=== PATIENT | female | born 1930 | race Caucasian/White ===

== ENCOUNTER 2021-06-18 14:44 | Emergency (ER) | payer MEDICARE, OTHER ==
[2021-06-18 15:13] LABS: Absolute Neutrophil Ct (ANC) 5.54 (1.4-6.9); BASOPHIL % 0.5 % (0.0-0.4); Basophil (Absolute #) 0.04 (0-0.4); Eosinophil % 0.4 % (0.00-5.0); Eosinophil (Absolute #) 0.03 (0-0.5); Hemoglobin 11.9 gm/dl (12.0-16.0); Lymphocyte (Absolute #) 0.97 (1.0-4.6); Lymphocytes % 13.1 % (24.0-44.0); Mean Cell Volume 87.2 fl (78-100); Mean Corpuscular Hemoglobin 30.5 pg (26-32); Mean Platelet Volume 9.6 fl (7.5-11.0); Monocyte (Absolute #) 0.83 (0.0-1.3); Monocytes % 11.2 % (0.0-12.0); Neutrophil % 74.8 % (36.0-66.0); Platelet Count 202 K/mm3 (150-450); Red Cell Distribution Width 11.9 % (11.5-14.0); White Blood Count 7.4 K/mm3 (4.0-10.5)
[2021-06-18 15:17] LABS: Appearance CLEAR (CLEAR); Bilirubin NEGATIVE (NEGATIVE); Blood NEGATIVE Ery/ul (0-5); Glucose 50 mg/dL (NEGATIVE); Ketones SMALL (NEGATIVE); Leukocyte Esterase NEGATIVE (NEGATIVE); Mucus SLIGHT /HPF (NEGATIVE); Nitrite NEGATIVE (NEGATIVE); Protein,Urine Dip 30 (Negative); RBC 0-2 /HPF (0-2); Specific Gravity 1.019 (1.005-1.025); Urobilinogen NEGATIVE mg/dL (0-1)
--- NOTE | 2021-06-18 15:20 | XRAY ---
Indication: Short of breath. Comparison: July 11, 2014. Portable chest remains clear. Heart not enlarged. Bony thorax again demonstrates osteopenia, degenerative changes, old right rib fractures, moderate dextrorotoscoliosis, and new finding for old left proximal humerus fracture with intact orthopedic hardware. Impression: Nonacute chest with chronic features.
[2021-06-18 15:37] LABS: INR 1.35 (0.8-3.0); PROTIME 15.9 SECONDS (9.4-12.5)
[2021-06-18 15:39] LABS: PTT 28.1 SECONDS (25.1-36.5)
[2021-06-18 15:41] LABS: ALBUMIN 4.1 g/dL (3.5-5.0); ALKALINE PHOSPHATASE 60 U/L (38-126); ANION GAP 14.7 MEQ/L (5-15); BLOOD UREA NITROGEN 23 mg/dL (7-17); CHLORIDE 89 mmol/L (98-107); Calcium 9.3 mg/dL (8.4-10.2); Carbon Dioxide 25 mmol/L (22-30); Creatinine 1 0.54 mg/dL (0.52-1.04); EST GLOMERULAR FILTRATION RATE > 60.0 ML/MIN; Glucose 171 mg/dL (74-106); Potassium 3.7 mmol/L (3.5-5.1); SGOT/AST 30 U/L (14-36); SGPT/ALT 19 U/L (0-35); SODIUM 125 mmol/L (137-145); Total Protein 7.4 g/dL (6.3-8.2)
--- NOTE | 2021-06-18 15:54 | ERPHSYRPT ---
- History of Present Illness Source: patient Exam Limitations: other (Very poor historian) Patient Subjective Stated Complaint: PT states "I am so tired that I cannot function well. It hurts when I breathe and my sugar has been all wonky." Triage Nursing Assessment: PT presented alert and oriented X 3, skin pwd. Pt ambulates with a slow shuffling gait with assist of 1. PT in no apparant respiratory distress. pt resting comfortably on the bed, FSBS 172 Physician History: 89 yo wf who is a very poor historian presents w lethargy and generalized pain. Pt states that she has had some abdominal pain and L lateral thoracic pain that seems to get worse w lying back. She denies trauma/fall. Pt has mild dyspnea wo chest pain/N/V/cough/fever/dysuria/hematuria. She has scoliosis and takes Ultram for pain. Timing/Duration: other (5 days) Modifying Factors: Improves With: movement Associated Symptoms: nausea, abdominal pain, No vomiting Allergies/Adverse Reactions: aspirin Adverse Reaction (Mild, Verified 12/19/13 09:52) pt states "i was told it interferes with my blood platelets. Takes ASA 81mg,states can't take large doses. Home Medications: Metoprolol Succinate 25 mg Xl* [Toprol-Xl 25MG Tablets] 25 mg PO DAILY 02/14/13 [History] Aspirin 81 mg PO DAILY 12/19/13 [History] Buspirone HCl 5 mg PO HS 03/27/20 [History] Esomeprazole Magnesium [Nexium] 20 mg PO DAILY 03/27/20 [History] Insulin Aspart [Novolog] 3 unit SQ TIDWMEALS 03/27/20 [History] Insulin Glargine [Lantus Insulin] 10 unit SQ DAILY 03/27/20 [History] Loratadine 10 mg [Claritin 10 mg] 10 mg PO DAILY 03/27/20 [History] Tramadol HCl 50 mg [Ultram 50 mg] 50 mg PO HS 03/27/20 [History] Hx Tetanus, Diphtheria Vaccination/Date Given: No Hx Influenza Vaccination/Date Given: Yes (fall 2012) Hx Pneumococcal Vaccination/Date Given: No Immunizations Up to Date: Yes Travel Risk - International Travel Have you traveled outside of the country in past 3 weeks: No - Coronavirus Screening Are you exhibiting any of the following symptoms?: No Close contact with a COVID-19 positive Pt in past 14-21 Days: No - Vaccine Status Have you recieved a Covid-19 vaccination: Yes Power Electronics Engineer: [employer] - Vaccination Dates Date of 2cond Vaccination (if applicable): 01/2021 - Review of Systems Constitutional: No Symptoms, Lethargy Eyes: No Symptoms Ears, Nose, & Throat: No Symptoms Respiratory: No Symptoms, Dyspnea Cardiac: No Symptoms, No Chest Pain, No Edema, No Palpitations, No Syncope, No Orthopnea, No PND Abdominal/Gastrointestinal: Abdominal Pain, Constipation, No No Symptoms Genitourinary Symptoms: No Symptoms Musculoskeletal: No Symptoms, Arthralgias, Back Pain Skin: No Symptoms Neurological: No Symptoms Psychological: No Symptoms Endocrine: No Symptoms Hematologic/Lymphatic: No Symptoms Immunological/Allergic: No Symptoms - Past Medical History Pertinent Past Medical History: Yes Neurological History: No Pertinent History ENT History: Cataracts Cardiac History: Coronary Artery Disease, High Cholesterol, Hypertension Respiratory History: No Pertinent History Endocrine Medical History: Diabetes Type II Musculoskeletal History: Osteoarthritis, Osteoporosis, Rheumatoid Arthritis, Other GI Medical History: GERD, Irritable Bowel History: Other Psycho-Social History: No Pertinent History Female Reproductive Disorders: No Pertinent History Other Medical History: scoliosis - Past Surgical History Past Surgical History: Yes Neuro Surgical History: No Pertinent History Cardiac: Cardiac Catheterization Respiratory: No Pertinent History Gastrointestinal: Cholecystectomy, Other Genitourinary: No Pertinent History Musculoskeletal: Joint Replacement Female Surgical History: Hysterectomy Other Surgical History: colonoscopy,jessenia IOL with lens implants, right knee replacement - Social History Smoking Status: Never smoker Exposure to second hand smoke: Yes Drug Use: none Patient Lives Alone: No Significant Family History: no pertinent family hx - Nursing Vital Signs Nursing Vital Signs: Initial Vital Signs Temperature 98.9 F 06/18/21 14:44 Pulse Rate 76 06/18/21 14:44 Respiratory Rate 22 06/18/21 14:44 Blood Pressure 152/87 06/18/21 14:44 O2 Sat by Pulse Oximetry 97 06/18/21 14:44 Pain Scale Pain Intensity 8 Hypertensive - Physical Exam General Appearance: no apparent distress Eye Exam: PERRL/EOMI, eyes nml inspection Ears, Nose, Throat Exam: normal ENT inspection, TMs normal, pharynx normal, moist mucous membranes Neck Exam: normal inspection, non-tender, supple, full range of motion, No meningismus, No mass, No Brudzinski, No Kernig's Respiratory Exam: normal breath sounds, chest tenderness (Mild, R lateral- inferior thoracic pain), lungs clear, airway intact, No respiratory distress Cardiovascular Exam: regular rate/rhythm, murmur (2/6 ISHAN) Gastrointestinal/Abdomen Exam: soft, normal bowel sounds, No tenderness Extremity Exam: normal inspection, normal range of motion, pelvis stable, other (Brace RLE) Neurologic Exam: alert, oriented x 3, cooperative, patient portal representative II-XII nml as tested, normal mood/affect, sensation nml, No motor deficits, No sensory deficit Skin Exam: normal color, warm, dry, No rash Lymphatic Exam: No adenopathy SpO2 Interpretation: normal SpO2: 97 O2 Delivery: Room Air - Course Nursing assessment & vital signs reviewed: Yes EKG Interpreted by Me: RATE (NSR/R76/Old inferior WI/Old anterior WI/Prolonged QTc) - Radiology Exams Chest X-ray Interpretation: Discussed w/ radiologist (Nothing acute per Rad) - CT Exams Chest CT Interpretation: Discussed w/radiologist (Fecal stasis/Distended bladder/osteopenia/scoliosis) Abdomen/Pelvis CT Interpretation: Discussed w/radiologist (Nothing acute) Ordered Tests: Active Orders 24 hr Category Date Time Status EKG-ER Only STAT Care 06/18/21 14:53 Completed ABDOMEN AND PELVIS W/0 CONTRAS [CT] Stat Exams 06/18/21 17:42 Taken CHEST 1 VIEW (PORTABLE) Stat Exams 06/18/21 14:53 Completed CHEST WITHOUT CONTRAST [CT] Stat Exams 06/18/21 17:41 Taken CBC W DIFF Stat Lab 06/18/21 15:00 Completed CMP Stat Lab 06/18/21 15:00 Completed PROTIME WITH INR Stat Lab 06/18/21 15:00 Completed PTT Stat Lab 06/18/21 15:00 Completed TROPONIN Q3H Lab 06/18/21 15:00 Completed TROPONIN Q3H Lab 06/18/21 17:59 Completed UA W/RFX UR CULTURE Stat Lab 06/18/21 15:04 Completed Medication Summary Discontinued Medications Generic Name Dose Route Start Last Admin Trade Name Freq PRN Reason Stop Dose Admin Ketorolac Tromethamine 15 mg 06/18/21 17:41 06/18/21 17:51 Toradol 30 Mg Injection IV 06/18/21 17:42 15 mg STAT ONE Administration Ketorolac Tromethamine Confirm 06/18/21 17:49 Toradol 30 Mg Injection Administered 06/18/21 17:50 Dose 30 mg .ROUTE .STK-MED ONE Ondansetron HCl 4 mg 06/18/21 19:33 06/18/21 19:37 Zofran Odt 4 Mg PO 06/18/21 19:34 4 mg STAT ONE Administration Ondansetron HCl Confirm 06/18/21 19:34 Zofran Odt 4 Mg Administered 06/18/21 19:35 Dose 4 mg .ROUTE .STK-MED ONE Lab/Rad Data: Laboratory Result Diagrams 06/18/21 15:00 06/18/21 15:00 Laboratory Results 06/18/21 06/18/21 06/18/21 Range/Units 17:59 15:04 15:00 WBC (4.0-10.5) K/mm3 RBC (4.1-5.4) M/mm3 Hgb (12.0-16.0) gm/dl Hct (35-47) % MCV (78-100) fl MCH (26-32) pg MCHC (32-36) g/dl RDW (11.5-14.0) % Plt Count (150-450) K/mm3 MPV (7.5-11.0) fl Gran % (36.0-66.0) % Eos # (Auto) (0-0.5) Absolute Lymphs (auto) (1.0-4.6) Absolute Monos (auto) (0.0-1.3) Lymphocytes % (24.0-44.0) % Monocytes % (0.0-12.0) % Eosinophils % (0.00-5.0) % Basophils % (0.0-0.4) % Absolute Granulocytes (1.4-6.9) Basophils # (0-0.4) PT (9.4-12.5) SECONDS INR (0.8-3.0) APTT (25.1-36.5) SECONDS Sodium (137-145) mmol/L Potassium (3.5-5.1) mmol/L Chloride (98-107) mmol/L Carbon Dioxide (22-30) mmol/L Anion Gap (5-15) MEQ/L BUN (7-17) mg/dL Creatinine (0.52-1.04) mg/dL Estimated GFR ML/MIN Glucose (74-106) mg/dL Calcium (8.4-10.2) mg/dL Total Bilirubin (0.2-1.3) mg/dL AST (14-36) U/L ALT (0-35) U/L Alkaline Phosphatase (38-126) U/L Troponin I < 0.012 < 0.012 (0.000-0.034) ng/mL Serum Total Protein (6.3-8.2) g/dL Albumin (3.5-5.0) g/dL Urine Color YELLOW (YELLOW) Urine Appearance CLEAR (CLEAR) Urine pH 6.0 (5-6) Ur Specific [place] 1.019 (1.005-1.025) Urine Protein 30 (Negative) Urine Ketones SMALL (NEGATIVE) Urine Blood NEGATIVE (0-5) [place]/ul Urine Nitrite NEGATIVE (NEGATIVE) Urine Bilirubin NEGATIVE (NEGATIVE) Urine Urobilinogen NEGATIVE (0-1) mg/dL Ur Leukocyte Esterase NEGATIVE (NEGATIVE) Urine WBC (Auto) NONE (0-5) /HPF Urine RBC (Auto) 0-2 (0-2) /HPF U Epithel Cells (Auto) NONE (FEW) /HPF Urine Bacteria (Auto) NONE (NEGATIVE) /HPF Urine Mucus (Auto) SLIGHT (NEGATIVE) /HPF Urine Culture Reflexed NO (NO) Urine Glucose 50 (NEGATIVE) mg/dL 06/18/21 06/18/21 06/18/21 Range/Units 15:00 15:00 15:00 WBC 7.4 (4.0-10.5) K/mm3 RBC 3.90 L (4.1-5.4) M/mm3 Hgb 11.9 L (12.0-16.0) gm/dl Hct 34.0 L (35-47) % MCV 87.2 (78-100) fl MCH 30.5 (26-32) pg MCHC 35.0 (32-36) g/dl RDW 11.9 (11.5-14.0) % Plt Count 202 (150-450) K/mm3 MPV 9.6 (7.5-11.0) fl Gran % 74.8 H (36.0-66.0) % Eos # (Auto) 0.03 (0-0.5) Absolute Lymphs (auto) 0.97 L (1.0-4.6) Absolute Monos (auto) 0.83 (0.0-1.3) Lymphocytes % 13.1 L (24.0-44.0) % Monocytes % 11.2 (0.0-12.0) % Eosinophils % 0.4 (0.00-5.0) % Basophils % 0.5 (0.0-0.4) % Absolute Granulocytes 5.54 (1.4-6.9) Basophils # 0.04 (0-0.4) PT 15.9 H (9.4-12.5) SECONDS INR 1.35 (0.8-3.0) APTT 28.1 (25.1-36.5) SECONDS Sodium 125 L (137-145) mmol/L Potassium 3.7 (3.5-5.1) mmol/L Chloride 89 L (98-107) mmol/L Carbon Dioxide 25 (22-30) mmol/L Anion Gap 14.7 (5-15) MEQ/L BUN 23 H (7-17) mg/dL Creatinine 0.54 (0.52-1.04) mg/dL Estimated GFR > 60.0 ML/MIN Glucose 171 H (74-106) mg/dL Calcium 9.3 (8.4-10.2) mg/dL Total Bilirubin 0.70 (0.2-1.3) mg/dL AST 30 (14-36) U/L ALT 19 (0-35) U/L Alkaline Phosphatase 60 (38-126) U/L Troponin I (0.000-0.034) ng/mL Serum Total Protein 7.4 (6.3-8.2) g/dL Albumin 4.1 (3.5-5.0) g/dL Urine Color (YELLOW) Urine Appearance (CLEAR) Urine pH (5-6) Ur Specific [place] (1.005-1.025) Urine Protein (Negative) Urine Ketones (NEGATIVE) Urine Blood (0-5) Bac[place]/ul Urine Nitrite (NEGATIVE) Urine Bilirubin (NEGATIVE) Urine Urobilinogen (0-1) mg/dL Ur Leukocyte Esterase (NEGATIVE) Urine WBC (Auto) (0-5) /HPF Urine RBC (Auto) (0-2) /HPF U Epithel Cells (Auto) (FEW) /HPF Urine Bacteria (Auto) (NEGATIVE) /HPF Urine Mucus (Auto) (NEGATIVE) /HPF Urine Culture Reflexed (NO) Urine Glucose (NEGATIVE) mg/dL - Progress Progress: improved Progress Note: 06/18/21 19:11 15mg IV Toradol 06/18/21 22:42 Pain improved w Toradol Pt has Tramadol at home Counseled pt/family regarding: lab results, diagnosis, need for follow-up, rad results - Departure Departure Disposition: Home Clinical Impression: Back pain Condition: Stable Critical Care Time: No Referrals: MARU HERNANDEZ DO [Primary Care Provider] - Instructions: Low Back Pain (DC) Additional Instructions: Follow up with your family MD Continue with Tramadol as needed for pain
[2021-06-18] MEDS ORDERED: TORAdol 30 mg Injection IV ONE (17:41)
[2021-06-18] MEDS ORDERED: TORAdol 30 mg Injection ONE (17:49)
[2021-06-18 18:11] VITALS: PULSE 61
[2021-06-18] MEDS ORDERED: ZOFRAN ODT 4 MG PO ONE (19:33)
[2021-06-18] MEDS ORDERED: ZOFRAN ODT 4 MG ONE (19:34)
[2021-06-18 20:10] VITALS: BP 164/79
[2021-06-18 22:44] VITALS: O2SAT 97
--- NOTE | 2021-06-19 08:46 | XRAY ---
Indication: Right thoracic pain. Multiple contiguous axial images obtained through the chest without contrast. Comparison: None Lungs are hyperinflated with tiny right middle lobe calcified granuloma and minimal bibasilar fibrosis/scarring. No suspicious pulmonary mass/nodule, infiltrate, or effusion. Heart not enlarged with scattered coronary calcifications. Aorta is mildly arteriosclerotic without aneurysm. No pathologic mediastinal lymphadenopathy. Bony thorax demonstrates mild sclerotic appearing right 3 and 10 posterior ribs with periosteal thickening possibly old fractures versus osteoblastic malignancy. Elsewhere osteopenia, mild/moderate degenerative spondylosis throughout the spine, moderate double curvature scoliosis, moderate right shoulder degenerative arthropathy, and old proximal left humerus fracture with intact fixation hardware. CT abdomen/pelvis reported separately. Impression: 1. No acute cardiopulmonary abnormalities on this noncontrast exam. 2. Incidental scattered fibrosis/scarring, arteriosclerotic disease, old granulomatous disease, and chronic bony findings. 3. Mildly sclerotic right 3 and 10 ribs with periosteal thickening possibly old fractures. Osteoblastic malignancy not completely excluded in the right clinical setting. Comment: Ribs findings not reported on preliminary report. I gave telephone report to Dr. Tenorio at 0844 hrs on Jun 19, 2021.
--- NOTE | 2021-06-19 08:52 | XRAY ---
Indication: Right costophrenic angle pain. Multiple contiguous axial images obtained through the abdomen and pelvis without contrast. Comparison: None CT chest reported separately. Noncontrasted stomach and bowel loops appear nonobstructed. There is moderate diffuse scattered colonic fecal debris throughout. Appendectomy, hysterectomy, and cholecystectomy reported. Urinary bladder is also markedly distended concerning for outlet obstruction versus neurogenic bladder. No free fluid/air. Nonobstructing punctate calculus in each kidney. Incidental tiny hepatic/splenic calcified granulomas. Remaining liver, pancreas, spleen, adrenal glands, kidneys, ureters, and bladder are unremarkable for noncontrast exam. Mild scattered aortoiliac calcifications without AAA. Osseous structures intact with osteopenia, mild/moderate degenerative spondylosis throughout the spine, and moderate double curvature scoliosis. Impression: 1. Moderate diffuse fecal stasis. 2. Markedly distended urinary bladder. Rule out outlet obstruction versus neurogenic bladder. 2. Incidental nonobstructing bilateral renal punctate calculus, chronic bony findings, and old granulomatous disease.
== END 2021-06-18 19:40 | disposition home or self-care (01) ==
LOC: ED 14:44
DX: M54.6 Pain in thoracic spine (principal); R53.83 Other fatigue; R11.0 Nausea; R10.9 Unspecified abdominal pain; R50.9 Fever, unspecified; Z79.899 Other long term (current) drug therapy; K59.00 Constipation, unspecified; I25.10 Atherosclerotic heart disease of native coronary artery without angina pectoris; E78.00 Pure hypercholesterolemia, unspecified; I10 Essential (primary) hypertension; E11.9 Type 2 diabetes mellitus without complications
CPT/HCPCS: 36000; 36415; 71045; 71250; 74176; 80053; 81001; 82947; 84484; 85025; 85610; 85730; 93005; 96374; 99284; J1885; Q0162

== ENCOUNTER 2021-06-20 14:22 | Inpatient (IN) | payer MEDICARE, OTHER ==
[2021-06-20] MEDS ORDERED: NORCO 5/325 MG ONE (15:02)
[2021-06-20] MEDS ORDERED: Lidoderm Patch 5% TOP STA (15:07)
[2021-06-20] MEDS ORDERED: NORCO 5/325 MG PO ONE (15:10)
--- NOTE | 2021-06-20 15:22 | ERPHSYRPT ---
- History of Present Illness Time Seen by Provider: 06/20/21 14:28 Source: patient Exam Limitations: no limitations Patient Subjective Stated Complaint: Pt states that she has pain in her right back right at the bottom of her rib cage, states that it hurt there the other d ay when she was in this ER but there is no mention of it, pt does have scoliosis Triage Nursing Assessment: Pt brought to the ER by EMS, vitals wnl, rates pain 10, pt has chronic back pain and states that she has been having to take more pain meds, pt states that she called Dr. Smith and she was supposed to order a xray of her back, no order has been given at this time, pulses normal, skin n/w/d, wears a leg/knee brace on the right leg, doesn't appear to be in any d istress Physician History: 89 years old female with history of coronary artery disease, hypertension, hyperlipidemia, GERD, diabetes mellitus, chronic back pain with scoliosis presented in the ER with increasing back pain especially on the right side and also having generalized weakness fatigue. Denies any radiation of pain to lower extremities, loss of bowel or bladder control. Pain is moderate intensity and usually controlled with taking tramadol once at nighttime but for the last few days it is not getting under control. Sharp and burning nature. Patient was e valuated in the ER 2 days ago with a CT chest abdomen pelvis which showed no acute fracture and some sclerotic lesion in the ribs raising question for malignancy versus old fractures. No fever or chills reported. Patient reported has been getting difficulty ambulate and wants to go to residential Timing/Duration: week(s), constant, gradual onset, worse Method of Injury: unknown Quality: burning, dull Back Pain Location: T-spine, lumbar spine, paraspinous muscles Severity of Pain-Max: moderate Severity of Pain-Current: moderate Modifying Factors: Improves With: pain medication. Worsens With: movement Associated Symptoms: lower back pain, muscle spasms, No fever, No chills, No sweating, No urinary incontinence, No loss of bowel control, No constipation, No problems urinating, No light-headedness, No dizziness, No weakness, No sensory/motor loss, No tingling in legs/feet Allergies/Adverse Reactions: aspirin Adverse Reaction (Mild, Verified 06/20/21 14:40) pt states "i was told it interferes with my blood platelets. Takes ASA 81mg,states can't take large doses. Home Medications: Metoprolol Succinate 25 mg Xl* [Toprol-Xl 25MG Tablets] 25 mg PO DAILY 02/14/13 [History] Aspirin 81 mg PO DAILY 12/19/13 [History] Buspirone HCl 5 mg PO BID 03/27/20 [History] Esomeprazole Magnesium [Nexium] 20 mg PO DAILY 03/27/20 [History] Insulin Aspart [Novolog] 3 unit SQ TIDWMEALS 03/27/20 [History] Loratadine 10 mg [Claritin 10 mg] 10 mg PO DAILY 03/27/20 [History] Calcium Carbonate/Vitamin D3 [Caltrate 600 Plus D3 Tablet] 1 each PO DAILY 06/20/21 [History] Docusate Sodium 100 mg [Colace 100 MG] 100 mg PO DAILY 06/20/21 [History] Lactobacillus Acidophilus [Acidophilus TABLET] 1 tab PO DAILY 06/20/21 [History] Metoclopramide HCl [Metoclopramide HCl Odt] 5 mg PO QHS 06/20/21 [History] Multivitamin/Iron/Folic Acid [Centrum Women Tablet] 1 each PO DAILY 06/20/21 [History] Oxybutynin Chloride 5 mg PO BID 06/20/21 [History] Hx Tetanus, Diphtheria Vaccination/Date Given: No Hx Influenza Vaccination/Date Given: Yes (fall 2012) Hx Pneumococcal Vaccination/Date Given: No Travel Risk - International Travel Have you traveled outside of the country in past 3 weeks: No - Coronavirus Screening Are you exhibiting any of the following symptoms?: No - Vaccine Status Have you recieved a Covid-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: [employer] - Vaccination Dates Date of 2cond Vaccination (if applicable): 01/2021 - Review of Systems Constitutional: Fatigue, Weakness Eyes: No Symptoms Ears, Nose, & Throat: No Symptoms Respiratory: No Symptoms Cardiac: No Symptoms Abdominal/Gastrointestinal: Nausea Genitourinary Symptoms: No Symptoms Musculoskeletal: Back Pain, Myalgias Skin: No Symptoms Neurological: No Symptoms Psychological: No Symptoms Endocrine: No Symptoms Hematologic/Lymphatic: No Symptoms - Past Medical History Pertinent Past Medical History: Yes Neurological History: No Pertinent History ENT History: Cataracts Cardiac History: Coronary Artery Disease, High Cholesterol, Hypertension Respiratory History: No Pertinent History Endocrine Medical History: Diabetes Type II Musculoskeletal History: Osteoarthritis, Osteoporosis, Rheumatoid Arthritis, Other GI Medical History: GERD, Irritable Bowel History: Other Psycho-Social History: No Pertinent History Female Reproductive Disorders: No Pertinent History Other Medical History: scoliosis - Past Surgical History Past Surgical History: Yes Neuro Surgical History: No Pertinent History Cardiac: Cardiac Catheterization Respiratory: No Pertinent History Gastrointestinal: Cholecystectomy, Other Genitourinary: No Pertinent History Musculoskeletal: Joint Replacement Female Surgical History: Hysterectomy Other Surgical History: colonoscopy,jessenia IOL with lens implants, right knee r eplacement - Social History Smoking Status: Never smoker Exposure to second hand smoke: No Drug Use: none Patient Lives Alone: No Significant Family History: no pertinent family hx - Female History Hx Now: No - Nursing Vital Signs Nursing Vital Signs: Initial Vital Signs Temperature 97.4 F 06/20/21 14:25 Pulse Rate 81 06/20/21 14:25 Blood Pressure 115/48 06/20/21 14:25 O2 Sat by Pulse Oximetry 99 06/20/21 14:25 Pain Scale Pain Intensity [Right Medial 4 Back] Pain Intensity 7 - Physical Exam General Appearance: no apparent distress, alert Eye Exam: PERRL/EOMI, eyes nml inspection Ears, Nose, Throat Exam: normal ENT inspection, TMs normal, pharynx normal Neck Exam: normal inspection, non-tender, supple, full range of motion Respiratory Exam: normal breath sounds, chest tenderness (Mild tenderness on the right side chest wall), rhonchi Cardiovascular Exam: regular rate/rhythm, normal heart sounds Gastrointestinal Exam: soft, normal bowel sounds, No tenderness Back Exam: vertebral tenderness, decreased range of motion, muscle spasm, other (Scoliosis) Extremity Exam: normal inspection, normal range of motion, pelvis stable Neurologic Exam: alert, oriented x 3, cooperative, 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 Do not cross midline in the right flank area/back. Tender to mild t ouching.) SpO2 Interpretation: normal SpO2: 99 O2 Delivery: Room Air Ordered Tests: Medication Summary Discontinued Medications Generic Name Dose Route Start Last Admin Trade Name Freq PRN Reason Stop Dose Admin Acetaminophen 650 mg 06/20/21 18:25 Tylenol 325 Mg PO 07/20/21 18:24 Q4H PRN PRN PAIN AND/OR FEVER Hydrocodone Bitart/Acetaminophen Confirm 06/20/21 15:02 Kenton 5/325 Mg Administered 06/20/21 15:03 Dose 1 tab .ROUTE .[facility]K-MED ONE Hydrocodone Bitart/Acetaminophen 1 tab 06/20/21 15:10 06/20/21 15:18 Kenton 5/325 Mg PO 06/20/21 15:11 1 tab STAT ONE Administration Acyclovir 800 mg 06/21/21 11:00 06/23/21 05:38 Zovirax 200 Mg PO 07/21/21 10:59 800 mg 5XD JULES Administration Acyclovir Confirm 06/22/21 17:58 Zovirax 200 Mg Administered 06/22/21 17:59 Dose 200 mg .ROUTE .STK-MED ONE Acyclovir 800 mg 06/23/21 07:00 06/24/21 14:17 Zovirax 800 Mg PO 07/23/21 06:59 800 mg 5XD JULES Administration Aspirin 81 mg 06/21/21 10:00 06/24/21 07:52 Ecotrin 81 Mg PO 07/21/21 09:59 81 mg DAILY JULES Administration Buspirone HCl 5 mg 06/20/21 22:00 06/24/21 07:52 Buspar 5 Mg PO 07/20/21 21:59 5 mg BID JULES Administration Calcium Carbonate 1 tab 06/21/21 10:00 06/24/21 07:52 Calcium 500mg W/Vit D Tablet PO 07/21/21 09:59 1 tab DAILY JULES Administration Docusate Sodium 100 mg 06/21/21 10:00 06/24/21 07:52 Colace 100 Mg PO 07/21/21 09:59 100 mg DAILY JULES Administration Famotidine 20 mg 06/20/21 22:00 06/24/21 07:53 Pepcid 20 Mg Vial IV 07/20/21 21:59 20 mg Q12HT JULES Administration Fentanyl Citrate 25 mcg 06/20/21 21:48 06/21/21 06:56 Sublimaze 100 Mcg/2 Ml IV 06/25/21 21:47 25 mcg Q2H PRN PRN Administration SEVERE PAIN Fentanyl Citrate 50 mcg 06/21/21 09:35 06/22/21 01:35 Sublimaze 100 Mcg/2 Ml IV 06/26/21 09:34 50 mcg Q2H PRN PRN Administration PAIN Gabapentin 100 mg 06/21/21 10:00 06/24/21 14:17 Neurontin 100 Mg PO 07/21/21 09:59 100 mg TID JULES Administration Sodium Chloride 1,000 mls @ 75 mls/hr 06/20/21 16:30 06/23/21 23:10 Sodium Chloride 0.9% 1000 Ml IV 07/20/21 16:29 75 mls/hr .[id number] JULES Administration Sodium Chloride Confirm 06/21/21 06:22 Sodium Chloride 0.9% 1000 Ml Administered 06/21/21 06:23 Dose 1,000 mls @ ud .ROUTE .[facility]-MED ONE Insulin Glargine 10 unit 06/21/21 10:00 06/24/21 08:46 Lantus Insulin SQ 07/21/21 09:59 Not Given DAILY [facility] Insulin Glargine 8 unit 06/24/21 10:00 06/24/21 09:40 Lantus Insulin SQ 07/24/21 09:59 Not Given DAILY [facility] Insulin Human Lispro 3 unit 06/21/21 12:00 06/24/21 14:13 Humalog SQ 07/21/21 11:59 Not Given TIDWMEALS [facility] Insulin Human Lispro 4 unit 06/21/21 22:00 06/23/21 21:11 Humalog SQ 07/21/21 21:59 4 unit QHS JULES Administration Lactobacillus Acidophilus 1 tab 06/21/21 10:00 06/24/21 07:52 Acidophilus Tablet PO 07/21/21 09:59 1 tab DAILY JULES Administration Lidocaine 1 patch 06/20/21 15:07 06/20/21 15:18 Lidoderm Patch 5% TOP 06/20/21 15:08 1 patch ONCE STA Administration Lidocaine 1 patch 06/21/21 10:00 06/24/21 08:47 Lidoderm Patch 5% TOP 07/21/21 09:59 Not Given QAM JULES Loratadine 10 mg 06/21/21 10:00 06/24/21 07:52 Claritin 10 Mg PO 07/21/21 09:59 10 mg DAILY JULES Administration Metoclopramide HCl 5 mg 06/20/21 22:00 06/21/21 09:50 Reglan 10 Mg PO 07/20/21 21:59 5 mg ACHS JULES Administration Metoclopramide HCl 5 mg 06/21/21 22:00 06/23/21 21:10 Reglan 10 Mg PO 07/21/21 21:59 5 mg QHS JULES Administration Metoprolol Succinate 25 mg 06/20/21 22:00 06/23/21 21:10 Toprol-Xl 25mg Tablets PO 07/20/21 21:59 25 mg HS JULES Administration Morphine Sulfate 2 mg 06/20/21 18:06 06/20/21 18:10 Morphine Sulfate 2 Mg Inj IV 06/20/21 18:07 2 mg STAT ONE Administration Morphine Sulfate Confirm 06/20/21 18:08 Morphine Sulfate 2 Mg Inj Administered 06/20/21 18:09 Dose 2 mg .ROUTE .STK-MED ONE Multivitamins Therapeutic 1 tab 06/21/21 10:00 06/24/21 07:52 Theragran Multivitamin PO 07/21/21 09:59 1 tab DAILY JULES Administration Non-Formulary Medication 1 each 06/21/21 22:00 06/23/21 21:53 Remove Patch Reminder TOP 07/21/21 21:59 1 each HS JULES Administration Ondansetron HCl 4 mg 06/20/21 18:06 06/20/21 18:10 Zofran 4 Mg/2 Ml Vial IV 06/20/21 18:07 4 mg STAT ONE Administration Ondansetron HCl Confirm 06/20/21 18:07 Zofran 4 Mg/2 Ml Vial Administered 06/20/21 18:08 Dose 4 mg .ROUTE .STK-MED ONE Ondansetron HCl 4 mg 06/20/21 18:25 Zofran 4 Mg/2 Ml Vial IV 07/20/21 18:24 Q6H PRN PRN NAUSEA/VOMITING Oxybutynin Chloride 5 mg 06/20/21 22:00 06/24/21 07:52 Ditropan 5 Mg PO 07/20/21 21:59 5 mg BID JULES Administration Pantoprazole Sodium 40 mg 06/21/21 10:00 06/24/21 07:52 Protonix 40mg Tablet PO 07/21/21 09:59 40 mg DAILY JULES Administration Polyethylene Glycol 17 gm 06/22/21 08:57 Miralax Powder 17gm Packet PO 07/22/21 08:56 DAILY PRN PRN CONSTIPATION Senna 8.6 mg 06/22/21 10:00 06/24/21 07:52 Senokot 8.6 Mg PO 07/22/21 09:59 8.6 mg DAILY JULES Administration Tramadol HCl 50 mg 06/20/21 22:00 06/20/21 22:55 Ultram 50 Mg PO 07/20/21 21:59 Not Given HS JULES Tramadol HCl 50 mg 06/21/21 12:00 06/24/21 12:26 Ultram 50 Mg PO 07/21/21 11:59 50 mg Q6HT JULES Administration Triamcinolone Acetonide 0 gm 06/24/21 09:35 06/24/21 12:29 Kenalog 0.1% Cream 15 Gm TP 07/24/21 09:34 15 gm TID PRN PRN Administration ITCHING Urea 15 gm 06/22/21 10:00 06/24/21 07:54 Ure-Na PO 07/22/21 09:59 15 gm DAILY JULES Administration Lab/Rad Data: Laboratory Result Diagrams 06/20/21 15:30 06/20/21 15:30 Laboratory Results 06/20/21 06/20/21 06/20/21 Range/Units 16:57 15:30 15:30 WBC 8.7 (4.0-10.5) K/mm3 RBC 3.61 L (4.1-5.4) M/mm3 Hgb 11.1 L (12.0-16.0) gm/dl Hct 32.0 L (35-47) % MCV 88.6 (78-100) fl MCH 30.7 (26-32) pg MCHC 34.7 (32-36) g/dl RDW 12.1 (11.5-14.0) % Plt Count 197 (150-450) K/mm3 MPV 9.3 (7.5-11.0) fl Gran % 76.7 H (36.0-66.0) % Eos # (Auto) 0.09 (0-0.5) Absolute Lymphs (auto) 0.77 L (1.0-4.6) Absolute Monos (auto) 1.14 (0.0-1.3) Lymphocytes % 8.9 L (24.0-44.0) % Monocytes % 13.1 H (0.0-12.0) % Eosinophils % 1.0 (0.00-5.0) % Basophils % 0.3 (0.0-0.4) % Absolute Granulocytes 6.65 (1.4-6.9) Basophils # 0.03 (0-0.4) Sodium 122 L (137-145) mmol/L Potassium 4.2 (3.5-5.1) mmol/L Chloride 88 L (98-107) mmol/L Carbon Dioxide 26 (22-30) mmol/L Anion Gap 13.4 (5-15) MEQ/L BUN 29 H (7-17) mg/dL Creatinine 0.68 (0.52-1.04) mg/dL Estimated GFR > 60.0 ML/MIN Glucose 173 H (74-106) mg/dL Calcium 8.6 (8.4-10.2) mg/dL Total Bilirubin 0.40 (0.2-1.3) mg/dL AST 34 (14-36) U/L ALT 18 (0-35) U/L Alkaline Phosphatase 51 (38-126) U/L Serum Total Protein 6.7 (6.3-8.2) g/dL Albumin 3.6 (3.5-5.0) g/dL SARS-CoV-2 (PCR) NEGATIVE (NEGATIVE) - Progress Progress: improved, pain not gone completely, re-examined Progress Note: 06/20/21 16:23 89 years old is evaluated for back pain. She is given Kenton and lidocaine patches. She does have shingle lesions with some crusting and hypersensitivity. I believe that is aggravating her back pain. Her previous CT done 2 days ago showed some sclerotic lesion in the ribs which could also be contributing towards her pain as well. It needs further evaluation but I do not know how far we and patient would be willing to go with her age and other comorbidities. I have repeated labs and her serum sodium is 122 which is further decline from labs done 2 days ago and her baseline is around 140. This explains her weakness and generalized. She is started on normal saline. Patient also states she does not want to go home and wants to go to residential. I have contacted case management and they will work on it. I have discussed with Dr. Segovia, reviewed history, work-up and agreed with admission. Discussed with : Juan Will see patient in: hospital (observation) Counseled pt/family regarding: lab results, diagnosis - Departure Departure Disposition: Observation Clinical Impression: Hyponatremia, Rib lesion Chronic back pain Qualifiers: Back pain location: back pain in unspecified location Back pain laterality: unspecified Qualified Code(s): M54.9 - Dorsalgia, unspecified Shingles Qualifiers: Herpes zoster complications: unspecified herpes zoster complication Qualified Code(s): B02.8 - Zoster with other complications Condition: Stable Critical Care Time: No
[2021-06-20 15:41] LABS: Absolute Neutrophil Ct (ANC) 6.65 (1.4-6.9); BASOPHIL % 0.3 % (0.0-0.4); Basophil (Absolute #) 0.03 (0-0.4); Eosinophil (Absolute #) 0.09 (0-0.5); Hemoglobin 11.1 gm/dl (12.0-16.0); Lymphocyte (Absolute #) 0.77 (1.0-4.6); Lymphocytes % 8.9 % (24.0-44.0); Mean Cell Volume 88.6 fl (78-100); Mean Corpuscular Hemoglobin 30.7 pg (26-32); Mean Corpuscular Hgb Concent. 34.7 g/dl (32-36); Mean Platelet Volume 9.3 fl (7.5-11.0); Monocyte (Absolute #) 1.14 (0.0-1.3); Monocytes % 13.1 % (0.0-12.0); Neutrophil % 76.7 % (36.0-66.0); Platelet Count 197 K/mm3 (150-450); Red Blood Count 3.61 M/mm3 (4.1-5.4); Red Cell Distribution Width 12.1 % (11.5-14.0); White Blood Count 8.7 K/mm3 (4.0-10.5)
[2021-06-20 15:52] LABS: ALBUMIN 3.6 g/dL (3.5-5.0); ALKALINE PHOSPHATASE 51 U/L (38-126); ANION GAP 13.4 MEQ/L (5-15); BLOOD UREA NITROGEN 29 mg/dL (7-17); CHLORIDE 88 mmol/L (98-107); Calcium 8.6 mg/dL (8.4-10.2); Carbon Dioxide 26 mmol/L (22-30); Creatinine 1 0.68 mg/dL (0.52-1.04); EST GLOMERULAR FILTRATION RATE > 60.0 ML/MIN; Glucose 173 mg/dL (74-106); Potassium 4.2 mmol/L (3.5-5.1); SGOT/AST 34 U/L (14-36); SGPT/ALT 18 U/L (0-35); SODIUM 122 mmol/L (137-145); Total Protein 6.7 g/dL (6.3-8.2)
[2021-06-20] MEDS: Sodium Chloride 0.9% 1000 ML 1,000 ML IV SCH (17:50)
[2021-06-20] MEDS ORDERED: MORPHINE SULFATE 2 MG INJ IV ONE (18:06)
[2021-06-20] MEDS ORDERED: Zofran 4 MG/2 ML VIAL IV ONE (18:06)
[2021-06-20] MEDS ORDERED: Zofran 4 MG/2 ML VIAL ONE (18:07)
[2021-06-20] MEDS ORDERED: MORPHINE SULFATE 2 MG INJ ONE (18:08)
[2021-06-20] MEDS ORDERED: Zofran 4 MG/2 ML VIAL IV PRN (18:25)
[2021-06-20] MEDS ORDERED: TYLENOL 325 MG PO PRN (18:25)
[2021-06-20] MEDS ORDERED: ULTRAM 50 MG PO SCH (22:00)
[2021-06-20] MEDS: Reglan 10 MG PO SCH (22:41)
[2021-06-20] MEDS: Toprol-Xl 25MG Tablets PO SCH (22:42)
[2021-06-20] MEDS: Ditropan 5 MG PO SCH (22:43)
[2021-06-20] MEDS: BUSPAR 5 MG PO SCH (22:43)
[2021-06-20] MEDS: SUBLIMAZE 100 MCG/2 ML IV PRN (22:43)
[2021-06-20 22:46] LABS: ANION GAP 11.4 MEQ/L (5-15); BLOOD UREA NITROGEN 20 mg/dL (7-17); CHLORIDE 91 mmol/L (98-107); Calcium 8.5 mg/dL (8.4-10.2); Carbon Dioxide 28 mmol/L (22-30); Creatinine 1 0.61 mg/dL (0.52-1.04); EST GLOMERULAR FILTRATION RATE > 60.0 ML/MIN; Glucose 153 mg/dL (74-106); SODIUM 126 mmol/L (137-145)
[2021-06-20] MEDS: Pepcid 20 MG VIAL IV SCH (22:54)
[2021-06-21] MEDS: SUBLIMAZE 100 MCG/2 ML IV PRN ×2 (03:08→06:56)
[2021-06-21] MEDS ORDERED: Sodium Chloride 0.9% 1000 ML 1,000 ML ONE (06:22)
[2021-06-21] MEDS: Sodium Chloride 0.9% 1000 ML 1,000 ML IV SCH ×2 (06:23→20:52)
[2021-06-21 06:42] LABS: Appearance SLIGHTLY CLOUDY (CLEAR); Bilirubin NEGATIVE (NEGATIVE); Blood NEGATIVE Ery/ul (0-5); Glucose NEGATIVE (NEGATIVE); Ketones TRACE (NEGATIVE); Leukocyte Esterase NEGATIVE (NEGATIVE); Nitrite NEGATIVE (NEGATIVE); Protein,Urine Dip NEGATIVE (Negative); Specific Gravity 1.014 (1.005-1.025); Urobilinogen NEGATIVE mg/dL (0-1)
[2021-06-21 06:57] LABS: Absolute Neutrophil Ct (ANC) 6.45 (1.4-6.9); BASOPHIL % 0.2 % (0.0-0.4); Basophil (Absolute #) 0.02 (0-0.4); Eosinophil (Absolute #) 0.08 (0-0.5); Hematocrit 33.4 % (35-47); Hemoglobin 11.3 gm/dl (12.0-16.0); Lymphocyte (Absolute #) 0.62 (1.0-4.6); Lymphocytes % 7.7 % (24.0-44.0); Mean Cell Volume 89.8 fl (78-100); Mean Corpuscular Hemoglobin 30.4 pg (26-32); Mean Corpuscular Hgb Concent. 33.8 g/dl (32-36); Mean Platelet Volume 10.4 fl (7.5-11.0); Monocyte (Absolute #) 0.85 (0.0-1.3); Monocytes % 10.6 % (0.0-12.0); Neutrophil % 80.5 % (36.0-66.0); Platelet Count 192 K/mm3 (150-450); Red Blood Count 3.72 M/mm3 (4.1-5.4); Red Cell Distribution Width 12.4 % (11.5-14.0)
[2021-06-21 08:13] LABS: ALBUMIN 3.4 g/dL (3.5-5.0); ALKALINE PHOSPHATASE 51 U/L (38-126); ANION GAP 11.8 MEQ/L (5-15); BLOOD UREA NITROGEN 14 mg/dL (7-17); CHLORIDE 93 mmol/L (98-107); Calcium 8.4 mg/dL (8.4-10.2); Carbon Dioxide 24 mmol/L (22-30); Creatinine 1 0.54 mg/dL (0.52-1.04); EST GLOMERULAR FILTRATION RATE > 60.0 ML/MIN; Glucose 131 mg/dL (74-106); Potassium 4.2 mmol/L (3.5-5.1); SGOT/AST 28 U/L (14-36); SGPT/ALT 17 U/L (0-35); SODIUM 125 mmol/L (137-145); Total Protein 6.6 g/dL (6.3-8.2)
[2021-06-21] MEDS ORDERED: SUBLIMAZE 100 MCG/2 ML IV PRN (09:35)
[2021-06-21] MEDS: ZOVIRAX 200 MG PO SCH ×4 (09:49→22:56)
[2021-06-21] MEDS: Lidoderm Patch 5% TOP SCH (09:49)
[2021-06-21] MEDS: Pepcid 20 MG VIAL IV SCH ×2 (09:49→22:57)
[2021-06-21] MEDS: BUSPAR 5 MG PO SCH ×2 (09:50→22:57)
[2021-06-21] MEDS: Ditropan 5 MG PO SCH ×2 (09:50→22:56)
[2021-06-21] MEDS: Neurontin 100 MG PO SCH ×3 (09:50→22:56)
[2021-06-21] MEDS: Reglan 10 MG PO SCH ×2 (09:50→22:57)
[2021-06-21] MEDS ORDERED: CALCIUM CARBONATE PO SCH (10:00)
[2021-06-21] MEDS ORDERED: FOLIC ACID PO SCH (10:00)
[2021-06-21] MEDS ORDERED: MULTIVITAMIN PO SCH (10:00)
[2021-06-21] MEDS ORDERED: NON-FORMULARY ITEM (Aspirin [Aspirin] 81 MG) PO SCH (10:00)
[2021-06-21] MEDS ORDERED: IRON PO SCH (10:00)
[2021-06-21] MEDS ORDERED: VITAMIN D3 PO SCH (10:00)
[2021-06-21] MEDS ORDERED: NON-FORMULARY ITEM (Esomeprazole Magnesium [Nexium] 20 MG) PO SCH (10:00)
[2021-06-21] MEDS: Colace 100 MG PO SCH (10:28)
[2021-06-21] MEDS: CLARITIN 10 MG PO SCH (10:28)
[2021-06-21] MEDS: Acidophilus TABLET PO SCH (10:28)
[2021-06-21] MEDS: ECOTRIN 81 MG PO SCH (10:28)
[2021-06-21] MEDS: Calcium 500MG W/Vit D Tablet PO SCH (10:28)
[2021-06-21] MEDS: THERAGRAN MULTIVITAMIN PO SCH (10:29)
[2021-06-21] MEDS: Protonix 40MG Tablet PO SCH (10:29)
[2021-06-21] MEDS: Lantus Insulin SQ SCH (10:29)
[2021-06-21] MEDS: HUMALOG SQ SCH ×3 (11:39→23:29)
[2021-06-21] MEDS: ULTRAM 50 MG PO SCH ×3 (11:39→22:56)
[2021-06-21] MEDS ORDERED: INSULIN ASPART 3 UNIT SQ SCH (12:00)
--- NOTE | 2021-06-21 13:50 | PCM.HP ---
History of Present Illness - Chief Complaint Chief Complaint: Hyponatremia, shingles Date: 06/21/21 History of Present Illness: is a 89 year old female. Presented again to ER after increasing right lower back pain the past few days, and a rash that has been noted to be starting today in that area. Patient has also noted increasing generalized fatigue. Pt. denies radiation of pain and not changes in bowel or bladder functioning. Pt. also denies fever and chest pain or dyspnea. - Review of Systems Constitutional: Fatigue, No Fever, No Chills Eyes: No Symptoms Ears, Nose, & Throat: No Symptoms Respiratory: No Cough, No Short Of Breath Cardiac: No Chest Pain, No Edema, No Syncope Abdominal/Gastrointestinal: No Abdominal Pain, No Nausea, No Vomiting, No Diarrhea Genitourinary Symptoms: No Dysuria Musculoskeletal: Back Pain, No Neck Pain Skin: Rash, Skin Lesions (Right lower back) Neurological: No Dizziness, No Focal Weakness, No Sensory Changes Psychological: No Symptoms Endocrine: No Symptoms Hematologic/Lymphatic: No Symptoms Immunological/Allergic: No Symptoms Medications & Allergies Home Medications: Home Medication List Metoprolol Succinate 25 mg Xl* [Toprol-Xl 25MG Tablets] 25 mg PO DAILY 02/14/13 [History Confirmed 06/20/21] Aspirin 81 mg PO DAILY 12/19/13 [History Confirmed 06/20/21] Buspirone HCl 5 mg PO BID 03/27/20 [History Confirmed 06/20/21] Esomeprazole Magnesium [Nexium] 20 mg PO DAILY 03/27/20 [History Confirmed 06/20/21] Insulin Aspart [Novolog] 3 unit SQ TIDWMEALS 03/27/20 [History Confirmed 06/20/21] Insulin Glargine [Lantus Insulin] 10 unit SQ DAILY 03/27/20 [History Confirmed 06/20/21] Loratadine 10 mg [Claritin 10 mg] 10 mg PO DAILY 03/27/20 [History Confirmed 06/20/21] Tramadol HCl 50 mg [Ultram 50 mg] 50 mg PO HS 03/27/20 [History Confirmed 06/20/21] Calcium Carbonate/Vitamin D3 [Caltrate 600 + D Tablet] 1 each PO DAILY 06/20/21 [History Confirmed 06/20/21] Docusate Sodium 100 mg [Colace 100 MG] 100 mg PO DAILY 06/20/21 [History Confirmed 06/20/21] Insulin Aspart [Novolog] 4 unit SQ QHS 06/20/21 [History Confirmed 06/20/21] Lactobacillus Acidophilus [Acidophilus TABLET] 1 tab PO DAILY 06/20/21 [History Confirmed 06/20/21] Metoclopramide HCl [Metoclopramide HCl Odt] 5 mg PO QHS 06/20/21 [History Confirmed 06/20/21] Multivitamin/Iron/Folic Acid [Centrum Women Tablet] 1 each PO DAILY 06/20/21 [History Confirmed 06/20/21] Oxybutynin Chloride 5 mg PO BID 06/20/21 [History Confirmed 06/20/21] Allergies/Adverse Reactions: Allergies Allergy/AdvReac Type Severity Reaction Status Date / Time aspirin AdvReac Mild Verified 06/20/21 14:40 - Past Medical History Past Medical History: Yes Neurological History: No Pertinent History ENT History: Cataracts Cardiac History: Coronary Artery Disease, Hypertension Respiratory History: No Pertinent History Endocrine Medical History: Diabetes Type II Musculoskelatal History: Osteoarthritis, Osteoporosis, Rheumatoid Arthritis, Other GI Medical History: GERD, Irritable Bowel History: Other Pyscho-Social History: No Pertinent History Reproductive Disorders: No Pertinent History Comment: scoliosis - Female History Are you now?: No - Past Surgical History Past Surgical History: Yes Neuro Surgical History: No Pertinent History Cardiac History: Cardiac Catheterization Respiratory Surgery: No Pertinent History GI Surgical History: Cholecystectomy, Other Genitourinary Surgical Hx: No Pertinent History Musculskeletal Surgical Hx: Joint Replacement Female Surgical History: Hysterectomy Other Surgical History: colonoscopy,jessenia IOL with lens implants, right knee replacement - Social History Smoking Status: Never smoker Exposure to second hand smoke: No Alcohol: None Drug Use: none Significant Family History: no pertinent family hx - Physical Exam Vital Signs: Vital Signs - 24 hr Temp Pulse Resp BP Pulse Ox 06/21/21 12:00 16 06/21/21 11:56 98.1 F 74 18 128/84 94 L 06/21/21 07:38 12 06/21/21 07:37 98.2 F 80 18 138/66 93 L 06/21/21 04:00 98.0 F 69 18 180/76 91 L 06/21/21 00:00 98.2 F 74 16 165/79 06/20/21 20:00 98.1 F 69 18 155/70 98 06/20/21 18:06 99 06/20/21 18:00 80 18 132/73 97 06/20/21 17:00 72 18 123/55 97 06/20/21 16:07 80 16 130/73 96 06/20/21 15:52 73 135/57 97 06/20/21 14:25 97.4 F 81 115/48 99 General Appearance: no apparent distress, alert Neurologic Exam: alert, oriented x 3, cooperative, normal mood/affect, nml cerebellar function, sensation nml, No motor deficits Eye Exam: PERRL/EOMI, eyes nml inspection Ears, Nose, Throat Exam: normal ENT inspection, pharynx normal, moist mucous membranes Neck Exam: normal inspection, non-tender, supple, full range of motion Respiratory Exam: normal breath sounds, lungs clear, No respiratory distress Cardiovascular Exam: regular rate/rhythm, normal heart sounds, normal peripheral pulses Gastrointestinal/Abdomen Exam: soft, normal bowel sounds, No tenderness, No mass Back Exam: normal inspection, normal range of motion, No CVA tenderness, No vertebral tenderness Extremity Exam: normal inspection, normal range of motion, pelvis stable Skin Exam: normal color, warm, dry, No rash Lymphatic Exam: No adenopathy Results - Labs Lab/Micro Results: Lab Results-Last 24 Hours 06/20/21 06/20/21 06/20/21 Range/Units 15:30 15:30 16:57 WBC 8.7 (4.0-10.5) K/mm3 RBC 3.61 L (4.1-5.4) M/mm3 Hgb 11.1 L (12.0-16.0) gm/dl Hct 32.0 L (35-47) % MCV 88.6 (78-100) fl MCH 30.7 (26-32) pg MCHC 34.7 (32-36) g/dl RDW 12.1 (11.5-14.0) % Plt Count 197 (150-450) K/mm3 MPV 9.3 (7.5-11.0) fl Gran % 76.7 H (36.0-66.0) % Eos # (Auto) 0.09 (0-0.5) Absolute Lymphs (auto) 0.77 L (1.0-4.6) Absolute Monos (auto) 1.14 (0.0-1.3) Lymphocytes % 8.9 L (24.0-44.0) % Monocytes % 13.1 H (0.0-12.0) % Eosinophils % 1.0 (0.00-5.0) % Basophils % 0.3 (0.0-0.4) % Absolute Granulocytes 6.65 (1.4-6.9) Basophils # 0.03 (0-0.4) Sodium 122 L (137-145) mmol/L Potassium 4.2 (3.5-5.1) mmol/L Chloride 88 L (98-107) mmol/L Carbon Dioxide 26 (22-30) mmol/L Anion Gap 13.4 (5-15) MEQ/L BUN 29 H (7-17) mg/dL Creatinine 0.68 (0.52-1.04) mg/dL Estimated GFR > 60.0 ML/MIN Glucose 173 H (74-106) mg/dL POC Glucometer (74 to 106) mg/dL Calcium 8.6 (8.4-10.2) mg/dL Total Bilirubin 0.40 (0.2-1.3) mg/dL AST 34 (14-36) U/L ALT 18 (0-35) U/L Alkaline Phosphatase 51 (38-126) U/L Serum Total Protein 6.7 (6.3-8.2) g/dL Albumin 3.6 (3.5-5.0) g/dL Urine Color (YELLOW) Urine Appearance (CLEAR) Urine pH (5-6) Ur Specific Corning (1.005-1.025) Urine Protein (Negative) Urine Ketones (NEGATIVE) Urine Blood (0-5) Bacilio/ul Urine Nitrite (NEGATIVE) Urine Bilirubin (NEGATIVE) Urine Urobilinogen (0-1) mg/dL Ur Leukocyte Esterase (NEGATIVE) Urine WBC (Auto) (0-5) /HPF Urine RBC (Auto) (0-2) /HPF U Epithel Cells (Auto) (FEW) /HPF Urine Bacteria (Auto) (NEGATIVE) /HPF Urine Culture Reflexed (NO) Urine Glucose (NEGATIVE) mg/dL SARS-CoV-2 (PCR) NEGATIVE (NEGATIVE) 10/01/21 10/02/21 10/02/21 Range/Units 22:31 05:24 05:25 WBC 8.0 (4.0-10.5) K/mm3 RBC 3.72 L (4.1-5.4) M/mm3 Hgb 11.3 L (12.0-16.0) gm/dl Hct 33.4 L (35-47) % MCV 89.8 (78-100) fl MCH 30.4 (26-32) pg MCHC 33.8 (32-36) g/dl RDW 12.4 (11.5-14.0) % Plt Count 192 (150-450) K/mm3 MPV 10.4 (7.5-11.0) fl Gran % 80.5 H (36.0-66.0) % Eos # (Auto) 0.08 (0-0.5) Absolute Lymphs (auto) 0.62 L (1.0-4.6) Absolute Monos (auto) 0.85 (0.0-1.3) Lymphocytes % 7.7 L (24.0-44.0) % Monocytes % 10.6 (0.0-12.0) % Eosinophils % 1.0 (0.00-5.0) % Basophils % 0.2 (0.0-0.4) % Absolute Granulocytes 6.45 (1.4-6.9) Basophils # 0.02 (0-0.4) Sodium 126 L (137-145) mmol/L Potassium 4.0 (3.5-5.1) mmol/L Chloride 91 L (98-107) mmol/L Carbon Dioxide 28 (22-30) mmol/L Anion Gap 11.4 (5-15) MEQ/L BUN 20 H (7-17) mg/dL Creatinine 0.61 (0.52-1.04) mg/dL Estimated GFR > 60.0 ML/MIN Glucose 153 H (74-106) mg/dL POC Glucometer (74 to 106) mg/dL Calcium 8.5 (8.4-10.2) mg/dL Total Bilirubin (0.2-1.3) mg/dL AST (14-36) U/L ALT (0-35) U/L Alkaline Phosphatase (38-126) U/L Serum Total Protein (6.3-8.2) g/dL Albumin (3.5-5.0) g/dL Urine Color YELLOW (YELLOW) Urine Appearance SLIGHTLY CLOUDY (CLEAR) Urine pH 6.0 (5-6) Ur Specific Corning 1.014 (1.005-1.025) Urine Protein NEGATIVE (Negative) Urine Ketones TRACE (NEGATIVE) Urine Blood NEGATIVE (0-5) Bacilio/ul Urine Nitrite NEGATIVE (NEGATIVE) Urine Bilirubin NEGATIVE (NEGATIVE) Urine Urobilinogen NEGATIVE (0-1) mg/dL Ur Leukocyte Esterase NEGATIVE (NEGATIVE) Urine WBC (Auto) NONE (0-5) /HPF Urine RBC (Auto) NONE (0-2) /HPF U Epithel Cells (Auto) NONE (FEW) /HPF Urine Bacteria (Auto) NONE (NEGATIVE) /HPF Urine Culture Reflexed NO (NO) Urine Glucose NEGATIVE (NEGATIVE) mg/dL SARS-CoV-2 (PCR) (NEGATIVE) 06/21/21 06/21/21 06/21/21 Range/Units 05:25 07:10 10:56 WBC (4.0-10.5) K/mm3 RBC (4.1-5.4) M/mm3 Hgb (12.0-16.0) gm/dl Hct (35-47) % MCV (78-100) fl MCH (26-32) pg MCHC (32-36) g/dl RDW (11.5-14.0) % Plt Count (150-450) K/mm3 MPV (7.5-11.0) fl Gran % (36.0-66.0) % Eos # (Auto) (0-0.5) Absolute Lymphs (auto) (1.0-4.6) Absolute Monos (auto) (0.0-1.3) Lymphocytes % (24.0-44.0) % Monocytes % (0.0-12.0) % Eosinophils % (0.00-5.0) % Basophils % (0.0-0.4) % Absolute Granulocytes (1.4-6.9) Basophils # (0-0.4) Sodium 125 L (137-145) mmol/L Potassium 4.2 (3.5-5.1) mmol/L Chloride 93 L (98-107) mmol/L Carbon Dioxide 24 (22-30) mmol/L Anion Gap 11.8 (5-15) MEQ/L BUN 14 (7-17) mg/dL Creatinine 0.54 (0.52-1.04) mg/dL Estimated GFR > 60.0 ML/MIN Glucose 131 H (74-106) mg/dL POC Glucometer 129 H 227 H (74 to 106) mg/dL Calcium 8.4 (8.4-10.2) mg/dL Total Bilirubin 0.40 (0.2-1.3) mg/dL AST 28 (14-36) U/L ALT 17 (0-35) U/L Alkaline Phosphatase 51 (38-126) U/L Serum Total Protein 6.6 (6.3-8.2) g/dL Albumin 3.4 L (3.5-5.0) g/dL Urine Color (YELLOW) Urine Appearance (CLEAR) Urine pH (5-6) Ur Specific Cor[place] (1.005-1.025) Urine Protein (Negative) Urine Ketones (NEGATIVE) Urine Blood (0-5) Bacilio/ul Urine Nitrite (NEGATIVE) Urine Bilirubin (NEGATIVE) Urine Urobilinogen (0-1) mg/dL Ur Leukocyte Esterase (NEGATIVE) Urine WBC (Auto) (0-5) /HPF Urine RBC (Auto) (0-2) /HPF U Epithel Cells (Auto) (FEW) /HPF Urine Bacteria (Auto) (NEGATIVE) /HPF Urine Culture Reflexed (NO) Urine Glucose (NEGATIVE) mg/dL SARS-CoV-2 (PCR) (NEGATIVE) Accuchecks Date 06/21/21 Date 06/21/21 Date 06/20/21 Time 11:30 Time 07:30 Time 22:31 Assessment/Plan (1) Hyponatremia Current Visit: Yes Status: Acute Assessment & Plan: admit with gentle hydration and fluid restriction Code(s): E87.1 - HYPO-OSMOLALITY AND HYPONATREMIA (2) Shingles Current Visit: Yes Status: Acute Qualifiers: Herpes zoster complications: unspecified herpes zoster complication Qualified Code(s): B02.8 - Zoster with other complications Assessment & Plan: Begin anti-virals and pain control Code(s): B02.9 - ZOSTER WITHOUT COMPLICATIONS (3) Generalized weakness Current Visit: Yes Status: Acute Assessment & Plan: cardiac markers will be checked and pt. will [facility] Code(s): R53.1 - WEAKNESS
[2021-06-21] MEDS ORDERED: INSULIN ASPART 4 UNIT SQ SCH (22:00)
[2021-06-21] MEDS ORDERED: METOCLOPRAMIDE HCL 5 MG PO SCH (22:00)
[2021-06-21] MEDS: Toprol-Xl 25MG Tablets PO SCH (22:56)
[2021-06-22] MEDS: ZOVIRAX 200 MG PO SCH ×5 (06:50→23:00)
[2021-06-22] MEDS: ULTRAM 50 MG PO SCH ×4 (06:50→23:00)
[2021-06-22 07:06] LABS: Hematocrit 31.6 % (35-47); Hemoglobin 10.6 gm/dl (12.0-16.0); Mean Cell Volume 90.3 fl (78-100); Mean Corpuscular Hemoglobin 30.3 pg (26-32); Mean Corpuscular Hgb Concent. 33.5 g/dl (32-36); Mean Platelet Volume 10.2 fl (7.5-11.0); Platelet Count 184 K/mm3 (150-450); Red Cell Distribution Width 12.5 % (11.5-14.0); White Blood Count 6.6 K/mm3 (4.0-10.5)
[2021-06-22 07:18] LABS: BLOOD UREA NITROGEN 10 mg/dL (7-17); CHLORIDE 94 mmol/L (98-107); Calcium 8.2 mg/dL (8.4-10.2); Carbon Dioxide 26 mmol/L (22-30); Creatinine 1 0.55 mg/dL (0.52-1.04); EST GLOMERULAR FILTRATION RATE > 60.0 ML/MIN; Glucose 73 mg/dL (74-106); Potassium 3.9 mmol/L (3.5-5.1); SODIUM 126 mmol/L (137-145)
[2021-06-22] MEDS: Sodium Chloride 0.9% 1000 ML 1,000 ML IV SCH ×2 (08:34→20:45)
[2021-06-22] MEDS: HUMALOG SQ SCH ×4 (08:48→20:47)
[2021-06-22] MEDS ORDERED: Miralax Powder 17GM PACKET PO PRN (08:57)
[2021-06-22] MEDS: THERAGRAN MULTIVITAMIN PO SCH (09:23)
[2021-06-22] MEDS: Lidoderm Patch 5% TOP SCH (09:23)
[2021-06-22] MEDS: CLARITIN 10 MG PO SCH (09:24)
[2021-06-22] MEDS: Protonix 40MG Tablet PO SCH (09:24)
[2021-06-22] MEDS: Ditropan 5 MG PO SCH ×2 (09:24→20:47)
[2021-06-22] MEDS: Colace 100 MG PO SCH (09:24)
[2021-06-22] MEDS: SENOKOT 8.6 MG PO SCH (09:24)
[2021-06-22] MEDS: Calcium 500MG W/Vit D Tablet PO SCH (09:24)
[2021-06-22] MEDS: ECOTRIN 81 MG PO SCH (09:24)
[2021-06-22] MEDS: Neurontin 100 MG PO SCH ×3 (09:25→20:47)
[2021-06-22] MEDS: Acidophilus TABLET PO SCH (09:25)
[2021-06-22] MEDS: BUSPAR 5 MG PO SCH ×2 (09:25→20:46)
[2021-06-22] MEDS: URE-NA PO SCH (09:26)
[2021-06-22] MEDS: Lantus Insulin SQ SCH (09:27)
[2021-06-22] MEDS: Pepcid 20 MG VIAL IV SCH ×2 (09:28→20:47)
[2021-06-22] MEDS ORDERED: ZOVIRAX 200 MG ONE (17:58)
[2021-06-22] MEDS: Toprol-Xl 25MG Tablets PO SCH (20:47)
[2021-06-22] MEDS: Reglan 10 MG PO SCH (20:52)
[2021-06-23] MEDS: ZOVIRAX 200 MG PO SCH (05:38)
[2021-06-23] MEDS: ULTRAM 50 MG PO SCH ×4 (05:38→23:10)
[2021-06-23 05:40] LABS: Hematocrit 31.8 % (35-47); Hemoglobin 10.9 gm/dl (12.0-16.0); Mean Cell Volume 89.8 fl (78-100); Mean Corpuscular Hemoglobin 30.8 pg (26-32); Mean Corpuscular Hgb Concent. 34.3 g/dl (32-36); Mean Platelet Volume 10.2 fl (7.5-11.0); Platelet Count 197 K/mm3 (150-450); Red Blood Count 3.54 M/mm3 (4.1-5.4); Red Cell Distribution Width 12.6 % (11.5-14.0); White Blood Count 7.5 K/mm3 (4.0-10.5)
[2021-06-23 05:54] LABS: ANION GAP 9.9 MEQ/L (5-15); BLOOD UREA NITROGEN 12 mg/dL (7-17); CHLORIDE 97 mmol/L (98-107); Calcium 8.1 mg/dL (8.4-10.2); Carbon Dioxide 24 mmol/L (22-30); Creatinine 1 0.55 mg/dL (0.52-1.04); EST GLOMERULAR FILTRATION RATE > 60.0 ML/MIN; Glucose 52 mg/dL (74-106); Potassium 3.9 mmol/L (3.5-5.1); SODIUM 127 mmol/L (137-145)
[2021-06-23] MEDS: ZOVIRAX 800 MG PO SCH ×5 (07:01→23:10)
[2021-06-23] MEDS: HUMALOG SQ SCH ×4 (08:03→21:11)
[2021-06-23] MEDS: CLARITIN 10 MG PO SCH (09:30)
[2021-06-23] MEDS: Lidoderm Patch 5% TOP SCH (09:30)
[2021-06-23] MEDS: ECOTRIN 81 MG PO SCH (09:30)
[2021-06-23] MEDS: BUSPAR 5 MG PO SCH ×2 (09:30→21:10)
[2021-06-23] MEDS: Ditropan 5 MG PO SCH ×2 (09:30→21:10)
[2021-06-23] MEDS: Neurontin 100 MG PO SCH ×3 (09:30→21:10)
[2021-06-23] MEDS: Lantus Insulin SQ SCH (09:30)
[2021-06-23] MEDS: Acidophilus TABLET PO SCH (09:30)
[2021-06-23] MEDS: Calcium 500MG W/Vit D Tablet PO SCH (09:30)
[2021-06-23] MEDS: Pepcid 20 MG VIAL IV SCH ×2 (09:30→21:11)
[2021-06-23] MEDS: Colace 100 MG PO SCH (09:30)
[2021-06-23] MEDS: Protonix 40MG Tablet PO SCH (09:30)
[2021-06-23] MEDS: THERAGRAN MULTIVITAMIN PO SCH (09:30)
[2021-06-23] MEDS: SENOKOT 8.6 MG PO SCH (09:31)
[2021-06-23] MEDS: URE-NA PO SCH (09:31)
[2021-06-23] MEDS: Sodium Chloride 0.9% 1000 ML 1,000 ML IV SCH ×2 (09:46→23:10)
[2021-06-23] MEDS: Reglan 10 MG PO SCH (21:10)
[2021-06-23] MEDS: Toprol-Xl 25MG Tablets PO SCH (21:10)
[2021-06-24 05:40] LABS: Hematocrit 30.3 % (35-47); Hemoglobin 10.1 gm/dl (12.0-16.0); Mean Cell Volume 91.5 fl (78-100); Mean Corpuscular Hemoglobin 30.5 pg (26-32); Mean Corpuscular Hgb Concent. 33.3 g/dl (32-36); Mean Platelet Volume 9.8 fl (7.5-11.0); Platelet Count 194 K/mm3 (150-450); Red Blood Count 3.31 M/mm3 (4.1-5.4); Red Cell Distribution Width 12.7 % (11.5-14.0); White Blood Count 6.1 K/mm3 (4.0-10.5)
[2021-06-24 05:49] LABS: INR 1.43 (0.8-3.0); PROTIME 16.9 SECONDS (9.4-12.5)
[2021-06-24 05:51] LABS: PTT 25.6 SECONDS (25.1-36.5)
[2021-06-24 05:56] LABS: ANION GAP 8.8 MEQ/L (5-15); BLOOD UREA NITROGEN 16 mg/dL (7-17); CHLORIDE 99 mmol/L (98-107); Carbon Dioxide 26 mmol/L (22-30); EST GLOMERULAR FILTRATION RATE > 60.0 ML/MIN; Glucose 61 mg/dL (74-106); Potassium 3.9 mmol/L (3.5-5.1); SODIUM 130 mmol/L (137-145)
[2021-06-24] MEDS: ECOTRIN 81 MG PO SCH (07:52)
[2021-06-24] MEDS: Protonix 40MG Tablet PO SCH (07:52)
[2021-06-24] MEDS: Neurontin 100 MG PO SCH ×2 (07:52→14:17)
[2021-06-24] MEDS: BUSPAR 5 MG PO SCH (07:52)
[2021-06-24] MEDS: Calcium 500MG W/Vit D Tablet PO SCH (07:52)
[2021-06-24] MEDS: THERAGRAN MULTIVITAMIN PO SCH (07:52)
[2021-06-24] MEDS: ZOVIRAX 800 MG PO SCH ×3 (07:52→14:17)
[2021-06-24] MEDS: Colace 100 MG PO SCH (07:52)
[2021-06-24] MEDS: CLARITIN 10 MG PO SCH (07:52)
[2021-06-24] MEDS: Acidophilus TABLET PO SCH (07:52)
[2021-06-24] MEDS: Ditropan 5 MG PO SCH (07:52)
[2021-06-24] MEDS: SENOKOT 8.6 MG PO SCH (07:52)
[2021-06-24] MEDS: ULTRAM 50 MG PO SCH ×2 (07:52→12:26)
[2021-06-24] MEDS: Pepcid 20 MG VIAL IV SCH (07:53)
[2021-06-24] MEDS: URE-NA PO SCH (07:54)
[2021-06-24] MEDS: HUMALOG SQ SCH ×2 (08:26→14:13)
[2021-06-24] MEDS: Lantus Insulin SQ SCH (08:46)
[2021-06-24] MEDS: Lidoderm Patch 5% TOP SCH (08:47)
[2021-06-24] MEDS ORDERED: KENALOG 0.1% CREAM 15 GM TP PRN (09:35)
[2021-06-24] MEDS ORDERED: Lantus Insulin SQ SCH (10:00)
[2021-06-24 12:26] VITALS: BP 137/63; PULSE 79; O2SAT 99
--- NOTE | 2021-06-30 08:29 | PCM.DS ---
Discharge Summary Date of Admission: 06/20/21 18:25 Date of Discharge: 06/24/2021 Admitting Physician: AISAH GU Primary Care Provider: MARU HERNANDEZ DO Allergies Allergies aspirin Adverse Reaction (Mild, Verified 06/20/21 14:40) pt states "i was told it interferes with my blood platelets. Takes ASA 81mg,states can't take large doses. Hospital Summary - Hospital Course Hospital Course: Pt. admitted for generalized weakness and hyponatremia, generalized weakness was a result of the hyponatremia and was treated with 3% hypertonic saline judiciously and slowly improved to a normal level, pt. was also noted to have shingles, pain was controlled and the patient was started on oral antiviral, after the sodium was normalized the patient was feeling much better and ready for discharge to home. - Vitals & Intake/Output Vital Signs: Vital Signs Temperature 97.3 F 06/24/21 12:00 Pulse Rate 79 06/24/21 12:00 Respiratory Rate 22 06/24/21 12:00 Blood Pressure 137/63 06/24/21 12:00 O2 Sat by Pulse Oximetry 99 06/29/21 23:10 - Lab Result Diagrams: 06/24/21 04:37 06/24/21 04:37 - Procedures and Test Procedures and Tests throughout Hospitalization: Therapy Orders & Screens 06/20/21 19:03 OT Screen per Nursing Assess ONCE Comment: Protocol Order Physician Instructions: Greater than 3 points order OT Admission Screening Reason For Exam: Triggered on Admission Diagnosis: Hyponatremia, shingles Open Wound/Cellutlitis/Pressure Ulcers: No Acute Fx/ORIF/Change in wt bearing status: Yes Severe MUSCULOSKELETAL pain: No ADL Dysfunction: Yes Acute CVA w/Hemiparesis/Hemiplegia: No Decreased Functional Mobility/Strength: Yes Sprain/Strain: No Acute Post-op Mobility Dysfunction: No Total Points: 9 PT Screen per Nursing Assess ONCE Comment: Protocol Order Physician Instructions: Greater than 3 points order PT Admission Screenin Reason For Exam: Triggered on Admission Diagnosis: Hyponatremia, shingles Open Wound/Cellutlitis/Pressure Ulcers: No Acute Fx/ORIF/Change in wt bearing status: Yes Severe MUSCULOSKELETAL pain: No ADL Dysfunction: Yes Acute CVA w/Hemiparesis/Hemiplegia: No Decreased Functional Mobility/Strength: Yes Sprain/Strain: No Acute Post-op Mobility Dysfunction: No Total Points: 9 10/03/21 09:00 PT Eval & Treat ( Order) ONCE Reason for Eval:: STRENGTHENING Diagnosis: Hyponatremia, shingles Discharge Exam General Appearance: no apparent distress, alert Neurologic Exam: alert, oriented x 3, cooperative, normal mood/affect, nml cerebellar function, sensation nml, No motor deficits Eye Exam: PERRL, EOMI, eyes nml inspection Ears, Nose, Throat Exam: normal ENT inspection, pharynx normal, moist mucous membranes Neck Exam: normal inspection, non-tender, supple, full range of motion Respiratory Exam: normal breath sounds, lungs clear, No respiratory distress Cardiovascular Exam: regular rate/rhythm, normal heart sounds Gastrointestinal/Abdomen Exam: soft, No tenderness, No mass Pelvic Exam: deferred Rectal Exam: deferred Back Exam: normal inspection, normal range of motion, No CVA tenderness, No vertebral tenderness Extremity Exam: normal inspection, normal range of motion Skin Exam: normal color, warm, dry Final Diagnosis/Problem List - Final Discharge Diagnosis/Problem (1) Hyponatremia Status: Acute Assessment & Plan: resolved Code(s): E87.1 - HYPO-OSMOLALITY AND HYPONATREMIA (2) Shingles Status: Acute Code(s): B02.9 - ZOSTER WITHOUT COMPLICATIONS (3) Generalized weakness Status: Acute Code(s): R53.1 - WEAKNESS - Discharge Discharge Date: 06/24/21 Disposition: Home, Self-Care Condition: Stable Prescriptions: New Triamcinolone 0.1% Cream [Kenalog 0.1% Cream 15 gm] 0 gm TP TID PRN PRN PRN Reason: Itching Polyethylene Glycol 3350 17 gm [Miralax Powder 17GM PACKET] 17 gm PO DAILY PRN PRN packet PRN Reason: Constipation Gabapentin 100 mg [Neurontin 100 MG] 100 mg PO TID Senna 8.6 mg [Senokot 8.6 mg] 8.6 mg PO DAILY tablet Tramadol HCl 50 mg [Ultram 50 mg] 50 mg PO Q6HT tablet Urea [Ure-Na] 15 gm PO DAILY Acyclovir 800 mg [Zovirax 800 mg] 800 mg PO 5XD tablet Continue Metoprolol Succinate 25 mg Xl* [Toprol-Xl 25MG Tablets] 25 mg PO DAILY Aspirin 81 mg PO DAILY Esomeprazole Magnesium [Nexium] 20 mg PO DAILY Insulin Aspart [Novolog] 3 unit SQ TIDWMEALS Loratadine 10 mg [Claritin 10 mg] 10 mg PO DAILY Buspirone HCl 5 mg PO BID Docusate Sodium 100 mg [Colace 100 MG] 100 mg PO DAILY Oxybutynin Chloride 5 mg PO BID Metoclopramide HCl [Metoclopramide HCl Odt] 5 mg PO QHS Multivitamin/Iron/Folic Acid [Centrum Women Tablet] 1 each PO DAILY Calcium Carbonate/Vitamin D3 [Caltrate 600 Plus D3 Tablet] 1 each PO DAILY Lactobacillus Acidophilus [Acidophilus TABLET] 1 tab PO DAILY Changed Insulin Glargine [Lantus Insulin] 8 unit SQ DAILY #0 Discontinued Tramadol HCl 50 mg [Ultram 50 mg] 50 mg PO HS Insulin Aspart [Novolog] 4 unit SQ QHS Additional Instructions: [facility] NURSING ORDERS: -PT/OT EVAL AND TREAT -MAINTAIN ISOLATION PER POLICY FOR SHINGLES -ACCUCHECKS ACHS -SEE ATTACHED MEDICATION LIST FOR MEDICATION ORDERS -1800 ADA DIET -STANDARD FLUID RESTRICTIONS Follow up with: MARU HERNANDEZ DO [Primary Care Provider] - Forms: Transfer Record [facility]
== END 2021-06-24 15:18 | disposition home or self-care (01) | DRG 641 ==
LOC: ED 14:22 → MED SURG 18:14 → OBSVTOIN 18:25
PROVIDERS: ADMIT Family Medicine; ATTEND Family Medicine
DX: E87.1 Hypo-osmolality and hyponatremia (principal); M54.9 Dorsalgia, unspecified; I10 Essential (primary) hypertension; B02.9 Zoster without complications; E11.9 Type 2 diabetes mellitus without complications; E78.5 Hyperlipidemia, unspecified; I25.10 Atherosclerotic heart disease of native coronary artery without angina pectoris; R53.1 Weakness; Z79.899 Other long term (current) drug therapy; Z79.4 Long term (current) use of insulin; Z20.822 Contact with and (suspected) exposure to COVID-19
CPT/HCPCS: 36000; 36415; 80048; 80053; 81001; 82947; 85025; 85027; 85610; 85730; 96374; 96375; 97161; 99284; U0003; J1817; J2270; J2405; J3010; A9270-GY